=== PATIENT | female | born 1980 | race Caucasian/White ===

== ENCOUNTER 2016-11-24 18:33 | Emergency (ER) | payer OTHER | END 2016-11-25 01:20 | disposition left against medical advice (07) | LOC: D.ER 18:33 | DX: S89.92XA Unspecified injury of left lower leg, initial encounter (principal); X58.XXXA Exposure to other specified factors, initial encounter; Y93.89 Activity, other specified; Y92.89 Other specified places as the place of occurrence of the external cause ==

== ENCOUNTER 2018-04-13 06:43 | Emergency (ER) | payer MEDICAID ==
[~2018-04-13] VITALS: Ht 157.5 cm; Wt 94.5 kg
[2018-04-13 06:50] VITALS: Ht 157.5 cm; Wt 94.5 kg
[2018-04-13] MEDS ORDERED: COLACE100 MG PO (06:51)
[2018-04-13] MEDS ORDERED: BUSPAR 15 MG TA15 MG PO (06:51)
[2018-04-13] MEDS ORDERED: PROZAC40 MG PO (06:51)
[2018-04-13] MEDS ORDERED: FLUTICASONE PRO16 GM NASAL (06:51)
[2018-04-13] MEDS ORDERED: HALDOL5 MG PO (06:52)
[2018-04-13] MEDS ORDERED: NEURONTIN 300300 MG PO (06:52)
[2018-04-13] MEDS ORDERED: LEVOXYL25 MCG PO (06:52)
[2018-04-13] MEDS ORDERED: OMEPRAZOLE20 M1 PO (06:53)
[2018-04-13] MEDS ORDERED: ROBAXIN500 MG PO (06:53)
[2018-04-13] MEDS ORDERED: NYSTATIN OINTME15 GM TOPICAL (06:53)
[2018-04-13] MEDS ORDERED: RITALIN10 MG PO (06:53)
[2018-04-13] MEDS ORDERED: NALTREXONE HCL50 MG PO (06:53)
[2018-04-13] MEDS ORDERED: DESERYL50 M2 PO (06:54)
[2018-04-13] MEDS ORDERED: SEROQUEL200 MG PO (06:54)
[2018-04-13] MEDS ORDERED: CYCLOBENZAPRINE10 MG PO (07:21)
[2018-04-13] MEDS ORDERED: IBUPROFEN800 MG PO (07:21)
[2018-04-13] MEDS ORDERED: ACETAMINOPHEN500 M1 PO (07:21)
[2018-04-13 07:45] VITALS: BP 128/83
== END 2018-04-13 07:44 | disposition home or self-care (01) ==
LOC: D.ER 06:43
DX: M54.12 Radiculopathy, cervical region (principal); M25.512 Pain in left shoulder; M50.20 Other cervical disc displacement, unspecified cervical region; Z86.59 Personal history of other mental and behavioral disorders; K21.9 Gastro-esophageal reflux disease without esophagitis; F17.200 Nicotine dependence, unspecified, uncomplicated

== ENCOUNTER → 2018-09-11 08:31 | Outpatient (CLI) | payer MEDICAID ==
[2018-04-13 06:50] VITALS: BMI 38.1
[~2018-09-11 08:31] MED LIST: ACETAMINOPHEN500 M1 PO; BUSPAR 15 MG TA15 MG PO; COLACE100 MG PO; CYCLOBENZAPRINE10 MG PO; DESERYL50 M2 PO; FLUTICASONE PRO16 GM NASAL; HALDOL5 MG PO; IBUPROFEN800 MG PO; LEVOXYL25 MCG PO; NALTREXONE HCL50 MG PO; NEURONTIN 300300 MG PO; NYSTATIN OINTME15 GM TOPICAL; OMEPRAZOLE20 M1 PO; PROZAC40 MG PO; RITALIN10 MG PO; ROBAXIN500 MG PO; SEROQUEL200 MG PO
[2018-09-11 09:08] LABS: BASOPHILS 0.6 % (0-2); EOSINOPHILS 1.8 % (0-7); HEMATOCRIT 37.8 % (36.0-48.0); HEMOGLOBIN 12.5 g/dL (12-16); IMMATURE GRANULOCYTES 0.4 % (0-5); LYMPHOCYTES 27.4 % (15-50); MCH 27.1 pg (26.0-34.0); MCHC 33.1 g/dL (31.0-37.0); MCV 81.8 fL (80.0-100.0); MEAN PLATELET VOLUME 9.7 fL (7.4-10.4); MONOCYTES 5.9 % (2-11); NEUTROPHILS 63.9 % (40-80); PLATELET COUNT 338 10x3/uL (130-400); RBC 4.62 10x6/uL (4.00-5.40); RDW 16.9 % (11.5-14.5); WBC 10.8 10x3/uL (4.8-10.8)
== END | disposition home or self-care (01) ==
LOC: D.LAB 08:31 → D.RT 09:00
PROVIDERS: ATTEND Internal Medicine Pulmonary Disease
DX: J45.909 Unspecified asthma, uncomplicated (principal)